=== PATIENT | female | born 1990 | race African-American/Black ===

== ENCOUNTER 2016-07-11 15:33 | Emergency (ER) | payer OTHER ==
[~2016-07-11] VITALS: Ht 177.8 cm; Wt 88.0 kg
[~2016-07-11 15:33] MED LIST: BACTRIM,SEPT1 TABLET PO; ENDOCET 5-3251 EACH PO; FLUCONAZOLE150 MG; LISINOPRIL10 MG PO; MIRENA52 MG; MOTRIN800 MG PO; PRENATAL1 EACH PO; TRAMADOL HCL50 MG
[2016-07-11] MEDS ORDERED: BENADRYL50 MG PO (17:20)
[2016-07-11 17:38] VITALS: BP 137/101
== END 2016-07-11 17:40 | disposition home or self-care (01) ==
LOC: EME 15:33
DX: T49.4X5A Adverse effect of keratolytics, keratoplastics, and other hair treatment drugs and preparations, initial encounter (principal); L23.4 Allergic contact dermatitis due to dyes; F17.200 Nicotine dependence, unspecified, uncomplicated
CPT/HCPCS: 99281; 99284

== ENCOUNTER → 2017-06-04 | Outpatient (CLI) | payer OTHER ==
[~2017-06-04] MED LIST changes: +BENADRYL50 MG PO
== END | disposition home or self-care (01) ==
LOC: CDC 15:51
DX: O10.019 Pre-existing essential hypertension complicating pregnancy, unspecified trimester (principal); O09.90 Supervision of high risk pregnancy, unspecified, unspecified trimester
CPT/HCPCS: 93000

== ENCOUNTER 2017-07-02 19:29 | Outpatient (CLI) | payer OTHER ==
[~2017-07-02] VITALS: Ht 177.8 cm; Wt 92.1 kg
[2017-07-02 19:52] VITALS: BP 117/75
[2017-07-02 20:15] VITALS: BP 116/72
[2017-07-02] MEDS ORDERED: PROCARDIA XL30 MG PO (20:15)
[2017-07-02] MEDS ORDERED: FLINTSTONES CO1 EAC1 PO (20:15)
[2017-07-02 20:19] LABS: BASOPHIL (%) 0.1 % (0-1); EOSINOPHIL (%) 1.1 % (0-5); EOSINOPHIL COUNT 0.1 K/uL (0-0.3); HEMATOCRIT 31.9 % (36.0-46.0); HEMOGLOBIN 10.6 G/DL (11.9-15.5); IMMATURE GRANULOCYTE (%) 0.6 % (0.0-0.7); LYMPHOCYTE (%) 17.7 % (15-42); LYMPHOCYTE COUNT 1.7 K/uL (1.0-2.8); MCHC 33.2 G/DL (30.0-36.0); MCV 90.4 FL (83-99); MONOCYTE (%) 6.8 % (3-12); MONOCYTE COUNT 0.7 K/uL (0-0.8); NEUTROPHIL (%) 73.7 % (45-76); NEUTROPHIL COUNT 7.1 K/uL (1.8-6.4); PLATELET COUNT 196 K/uL (156-360); RBC DIS.WIDTH-CV 12.5 % (11.8-14.6); RBC DIS.WIDTH-SD 40.6 % (39-53); RED BLOOD COUNT 3.53 M/uL (3.80-5.20); WHITE BLOOD COUNT 9.6 K/uL (4.1-10.2)
[2017-07-02 20:44] VITALS: BP 125/70
[2017-07-02 20:49] LABS: APPEARANCE CLEAR ((CLEAR)); BILIRUBIN NEGATIVE; BLOOD NEGATIVE; COLOR COLORLESS ((YELLOW)); GLUCOSE (STRIP) NEGATIVE; KETONES NEGATIVE; LEUKOCYTES NEGATIVE; NITRITE NEGATIVE; PROTEIN (STRIP) NEGATIVE; SPECIFIC GRAVITY 1.002 (1.000-1.030); UCUL ADDED? NO; UROBILINOGEN 0.2 MG/DL (0.2-1.0)
[2017-07-02 21:01] LABS: ALBUMIN 3.2 G/DL (3.2-4.8); CHLORIDE 111 MEQ/L (99-109); POTASSIUM 3.4 MEQ/L (3.7-5.4); SODIUM 140 MEQ/L (136-147); TOTAL BILIRUBIN 0.2 MG/DL (0.0-1.0)
[2017-07-02 21:06] LABS: ALKALINE PHOSPHATASE 38 IU/L (3-129); ALT (GPT) 6 IU/L (3-49); AST (GOT) 11 IU/L (2-34); CREATININE 0.6 MG/DL (0.6-1.3); GFR ESTIMATE (CALCULATED) > 59 mL/min/; GLUCOSE 97 mg/dL (70-99); LACTATE DEHYDROGENASE 115 IU/L (20-246); TOTAL PROTEIN 5.4 G/DL (6.4-8.3); UREA NITROGEN (BUN) 10 mg/dL (9-23)
[2017-07-02 21:06] LABS: AMPHETAMINE NEGATIVE (500 ng/mL); BARBITURATES NEGATIVE (200 ng/mL); BENZODIAZEPINES NEGATIVE (150 ng/mL); BUPRENORPHINE NEGATIVE (10 ng/mL); COCAINE NEGATIVE (150 ng/mL); METHADONE NEGATIVE (200 ng/mL); METHAMPHETAMINE NEGATIVE (500 ng/mL); OPIATES (MORPHINE) PRESUMPTIVE POSITIVE (100 ng/mL); OXYCODONE NEGATIVE (100 ng/mL); PHENCYCLIDINE NEGATIVE (25 ng/mL); PROPOXYPHENE NEGATIVE (300 ng/mL); THC CANNABINOIDS NEGATIVE (50 ng/mL); TRICYCLIC ANTIDEPRESSANTS NEGATIVE (300 ng/mL)
[2017-07-02 21:17] LABS: UR CREATININE CONCENTRATION 18.3 MG/DL
[2017-07-02 22:40] LABS: BENZODIAZEPINES, URINE SCREEN Negative (200 ng/mL)
== END 2017-07-02 21:55 | disposition home or self-care (01) ==
LOC: LDRP-OP 19:29 → 2WEST 19:30
PROVIDERS: Advanced Practice Midwife
DX: O10.912 Unspecified pre-existing hypertension complicating pregnancy, second trimester (principal); Z79.82 Long term (current) use of aspirin; Z87.891 Personal history of nicotine dependence; O99.342 Other mental disorders complicating pregnancy, second trimester; F32.9 Major depressive disorder, single episode, unspecified; O99.282 Endocrine, nutritional and metabolic diseases complicating pregnancy, second trimester; E87.6 Hypokalemia; Z3A.23 23 weeks gestation of pregnancy
CPT/HCPCS: 59025; 80053; 80306 90; 81003; 82570; 83615; 84156; 84550; 84999; 85025; G0378

== ENCOUNTER 2017-09-14 19:31 | Outpatient (CLI) | payer OTHER ==
[~2017-09-14 19:31] MED LIST changes: +FLINTSTONES CO1 EAC1 PO; +PROCARDIA XL30 MG PO
[2017-09-14 19:41] VITALS: BP 134/89
[2017-09-14 20:10] VITALS: BP 130/81
[2017-09-14 20:16] LABS: BASOPHIL (%) 0.3 % (0-1); EOSINOPHIL (%) 0.8 % (0-5); EOSINOPHIL COUNT 0.1 K/uL (0-0.3); HEMATOCRIT 32.6 % (36.0-46.0); HEMOGLOBIN 10.9 G/DL (11.9-15.5); IMMATURE GRANULOCYTE (%) 0.9 % (0.0-0.7); LYMPHOCYTE (%) 17.4 % (15-42); LYMPHOCYTE COUNT 1.8 K/uL (1.0-2.8); MCH 29.9 PG (29.0-34.0); MCHC 33.4 G/DL (30.0-36.0); MCV 89.3 FL (83-99); MONOCYTE (%) 7.2 % (3-12); MONOCYTE COUNT 0.7 K/uL (0-0.8); NEUTROPHIL (%) 73.4 % (45-76); NEUTROPHIL COUNT 7.4 K/uL (1.8-6.4); PLATELET COUNT 189 K/uL (156-360); RBC DIS.WIDTH-CV 12.2 % (11.8-14.6); RBC DIS.WIDTH-SD 39.5 % (39-53); RED BLOOD COUNT 3.65 M/uL (3.80-5.20); WHITE BLOOD COUNT 10.1 K/uL (4.1-10.2)
[2017-09-14 20:42] VITALS: BP 133/84
[2017-09-14 20:48] LABS: APPEARANCE CLEAR ((CLEAR)); BILIRUBIN NEGATIVE; BLOOD NEGATIVE; COLOR STRAW ((YELLOW)); GLUCOSE (STRIP) NEGATIVE; KETONES NEGATIVE; LEUKOCYTES NEGATIVE; NITRITE NEGATIVE; PROTEIN (STRIP) NEGATIVE; SPECIFIC GRAVITY 1.004 (1.000-1.030); UCUL ADDED? NO; UROBILINOGEN 0.2 MG/DL (0.2-1.0)
[2017-09-14 21:05] LABS: ALBUMIN 3.3 G/DL (3.2-4.8); ALKALINE PHOSPHATASE 67 IU/L (3-129); ALT (GPT) 6 IU/L (3-49); AST (GOT) 16 IU/L (2-34); CHLORIDE 109 MEQ/L (99-109); CREATININE 0.6 MG/DL (0.6-1.3); GFR ESTIMATE (CALCULATED) > 59 mL/min/; GLUCOSE 81 mg/dL (70-99); LACTATE DEHYDROGENASE 142 IU/L (20-246); POTASSIUM 3.2 MEQ/L (3.7-5.4); SODIUM 138 MEQ/L (136-147); TOTAL BILIRUBIN 0.3 MG/DL (0.0-1.0); TOTAL PROTEIN 5.7 G/DL (6.4-8.3); UREA NITROGEN (BUN) 6 mg/dL (9-23)
[2017-09-14 21:49] VITALS: BP 132/81
[2017-09-14] MEDS ORDERED: ASPIR 8181 M1 PO (22:30)
== END 2017-09-14 22:40 | disposition home or self-care (01) ==
LOC: LDRP-OP 19:31 → 2WEST 19:32 → LDRP-OP 11-25 22:39
PROVIDERS: Advanced Practice Midwife
DX: O10.913 Unspecified pre-existing hypertension complicating pregnancy, third trimester (principal); O99.343 Other mental disorders complicating pregnancy, third trimester; F32.9 Major depressive disorder, single episode, unspecified; Z3A.34 34 weeks gestation of pregnancy; Z87.891 Personal history of nicotine dependence
CPT/HCPCS: 59025; 76818; 80053; 81003; 82570; 83615; 84156; 84550; 85025; 85384; 87086; G0378

== ENCOUNTER 2017-09-19 11:37 | Outpatient (CLI) | payer OTHER ==
[2017-09-19] VITALS (10 sets, daily range): BP systolic 118–141; BP diastolic 65–93
[~2017-09-19] VITALS: Ht 177.8 cm; Wt 98.4 kg
[~2017-09-19 11:37] MED LIST changes: +ASPIR 8181 M1 PO
[2017-09-19] MEDS ORDERED: TYLENOL EXTRA500 MG PO (12:00)
[2017-09-19] MEDS ORDERED: REGLAN10 MG PO (12:00)
[2017-09-19 12:34] LABS: BASOPHIL (%) 0.1 % (0-1); EOSINOPHIL (%) 0.8 % (0-5); EOSINOPHIL COUNT 0.1 K/uL (0-0.3); HEMATOCRIT 33.7 % (36.0-46.0); HEMOGLOBIN 11.4 G/DL (11.9-15.5); IMMATURE GRANULOCYTE (%) 0.6 % (0.0-0.7); LYMPHOCYTE (%) 17.2 % (15-42); LYMPHOCYTE COUNT 1.4 K/uL (1.0-2.8); MCH 30.4 PG (29.0-34.0); MCHC 33.8 G/DL (30.0-36.0); MCV 89.9 FL (83-99); MONOCYTE (%) 4.8 % (3-12); MONOCYTE COUNT 0.4 K/uL (0-0.8); NEUTROPHIL (%) 76.5 % (45-76); NEUTROPHIL COUNT 6.1 K/uL (1.8-6.4); PLATELET COUNT 169 K/uL (156-360); RBC DIS.WIDTH-CV 12.3 % (11.8-14.6); RBC DIS.WIDTH-SD 40.3 % (39-53); RED BLOOD COUNT 3.75 M/uL (3.80-5.20)
[2017-09-19 13:23] LABS: ALBUMIN 3.1 G/DL (3.2-4.8); ALKALINE PHOSPHATASE 79 IU/L (3-129); ALT (GPT) 5 IU/L (3-49); AST (GOT) 11 IU/L (2-34); CHLORIDE 109 MEQ/L (99-109); CREATININE 0.6 MG/DL (0.6-1.3); GFR ESTIMATE (CALCULATED) > 59 mL/min/; GLUCOSE 159 mg/dL (70-99); LACTATE DEHYDROGENASE 118 IU/L (20-246); POTASSIUM 3.2 MEQ/L (3.7-5.4); SODIUM 139 MEQ/L (136-147); TOTAL BILIRUBIN 0.3 MG/DL (0.0-1.0); TOTAL PROTEIN 5.6 G/DL (6.4-8.3); UREA NITROGEN (BUN) 7 mg/dL (9-23); URIC ACID 3.4 mg/dL (3.1-9.2)
[2017-09-19 13:23] LABS: UR CREATININE CONCENTRATION 36.4 MG/DL
[2017-09-19 13:56] LABS: AMPHETAMINE NEGATIVE (500 ng/mL); BARBITURATES NEGATIVE (200 ng/mL); BENZODIAZEPINES NEGATIVE (150 ng/mL); BUPRENORPHINE NEGATIVE (10 ng/mL); COCAINE NEGATIVE (150 ng/mL); METHADONE NEGATIVE (200 ng/mL); METHAMPHETAMINE NEGATIVE (500 ng/mL); OPIATES (MORPHINE) NEGATIVE (100 ng/mL); OXYCODONE NEGATIVE (100 ng/mL); PHENCYCLIDINE NEGATIVE (25 ng/mL); PROPOXYPHENE NEGATIVE (300 ng/mL); THC CANNABINOIDS NEGATIVE (50 ng/mL); TRICYCLIC ANTIDEPRESSANTS NEGATIVE (300 ng/mL)
[2017-09-19 19:46] LABS: UR CREATININE CONCENTRATION 26.1 MG/DL
[2017-09-20 03:13] VITALS: BP 121/76
[2017-09-20 08:44] VITALS: BP 128/78
[2017-09-20 10:10] VITALS: BP 126/80
[2017-09-20 12:00] VITALS: BP 121/71
[2017-09-20 14:37] VITALS: BP 122/71
[2017-09-20 18:40] VITALS: BP 131/71
[2017-09-20 20:38] LABS: 24 HR VOLUME 6000 MLS
== END 2017-09-20 21:15 | disposition home or self-care (01) ==
LOC: LDRP-OP 11:37 → 2WEST 11:38 → LDRP-OP 11-25 23:05
PROVIDERS: Advanced Practice Midwife
DX: O26.893 Other specified pregnancy related conditions, third trimester (principal); O10.013 Pre-existing essential hypertension complicating pregnancy, third trimester; O41.03X0 Oligohydramnios, third trimester, not applicable or unspecified; Z3A.34 34 weeks gestation of pregnancy
CPT/HCPCS: 59025; 76818; 80053; 81050; 82570; 83615; 84156; 84550; 85025; G0378; J0702; J7120

== ENCOUNTER 2017-10-04 14:09 | Inpatient (IN) | payer OTHER ==
[~2017-10-04] VITALS: Ht 177.8 cm; Wt 98.4 kg
[~2017-10-04 14:09] MED LIST changes: +REGLAN10 MG PO; +TYLENOL EXTRA500 MG PO
[2017-10-04 14:40] VITALS: BP 133/90
[2017-10-04 15:49] VITALS: BP 134/90
[2017-10-04 17:09] VITALS: BP 130/98
[2017-10-04 19:31] VITALS: BP 133/90
[2017-10-04 22:34] VITALS: BP 135/97
[2017-10-05] VITALS (19 sets, daily range): BP systolic 111–143; BP diastolic 50–98
[2017-10-05 07:05] LABS: BASOPHIL (%) 0.3 % (0-1); EOSINOPHIL (%) 0.6 % (0-5); EOSINOPHIL COUNT 0.1 K/uL (0-0.3); HEMATOCRIT 35.4 % (36.0-46.0); HEMOGLOBIN 11.7 G/DL (11.9-15.5); IMMATURE GRANULOCYTE (%) 1.3 % (0.0-0.7); LYMPHOCYTE (%) 21.2 % (15-42); MCH 30.4 PG (29.0-34.0); MCHC 33.1 G/DL (30.0-36.0); MCV 91.9 FL (83-99); MONOCYTE (%) 7.4 % (3-12); MONOCYTE COUNT 0.7 K/uL (0-0.8); NEUTROPHIL (%) 69.2 % (45-76); NEUTROPHIL COUNT 6.5 K/uL (1.8-6.4); NRBC (%) 0.2 /100 WBC (0-0); PLATELET COUNT 154 K/uL (156-360); RBC DIS.WIDTH-CV 12.8 % (11.8-14.6); RBC DIS.WIDTH-SD 41.9 % (39-53); RED BLOOD COUNT 3.85 M/uL (3.80-5.20); WHITE BLOOD COUNT 9.4 K/uL (4.1-10.2)
[2017-10-05 08:34] LABS: AMPHETAMINE NEGATIVE (500 ng/mL); BARBITURATES NEGATIVE (200 ng/mL); BENZODIAZEPINES NEGATIVE (150 ng/mL); BUPRENORPHINE NEGATIVE (10 ng/mL); COCAINE NEGATIVE (150 ng/mL); METHADONE NEGATIVE (200 ng/mL); METHAMPHETAMINE NEGATIVE (500 ng/mL); OPIATES (MORPHINE) NEGATIVE (100 ng/mL); OXYCODONE NEGATIVE (100 ng/mL); PHENCYCLIDINE NEGATIVE (25 ng/mL); PROPOXYPHENE NEGATIVE (300 ng/mL); THC CANNABINOIDS NEGATIVE (50 ng/mL); TRICYCLIC ANTIDEPRESSANTS NEGATIVE (300 ng/mL)
[2017-10-05 09:22] LABS: ALBUMIN 3.1 G/DL (3.2-4.8); ALKALINE PHOSPHATASE 92 IU/L (3-129); ALT (GPT) 4 IU/L (3-49); AST (GOT) 10 IU/L (2-34); CHLORIDE 109 MEQ/L (99-109); CREATININE 0.7 MG/DL (0.6-1.3); GFR ESTIMATE (CALCULATED) > 59 mL/min/; GLUCOSE 87 mg/dL (70-99); LACTATE DEHYDROGENASE 160 IU/L (20-246); SODIUM 140 MEQ/L (136-147); TOTAL BILIRUBIN 0.3 MG/DL (0.0-1.0); TOTAL PROTEIN 5.4 G/DL (6.4-8.3); UREA NITROGEN (BUN) 8 mg/dL (9-23)
[2017-10-05 13:28] LABS: APPEARANCE CLEAR ((CLEAR)); BILIRUBIN NEGATIVE; BLOOD NEGATIVE; COLOR YELLOW ((YELLOW)); GLUCOSE (STRIP) NEGATIVE; KETONES NEGATIVE; LEUKOCYTES NEGATIVE; NITRITE NEGATIVE; PROTEIN (STRIP) NEGATIVE; SPECIFIC GRAVITY 1.012 (1.000-1.030); UCUL ADDED? NO; UROBILINOGEN 0.2 MG/DL (0.2-1.0)
[2017-10-06] VITALS (35 sets, daily range): BP systolic 104–164; BP diastolic 60–107
[2017-10-07] VITALS (12 sets, daily range): BP systolic 127–182; BP diastolic 67–98
[2017-10-08 03:20] VITALS: BP 111/71
[2017-10-08 06:37] LABS: BASOPHIL (%) 0.3 % (0-1); EOSINOPHIL (%) 2.1 % (0-5); EOSINOPHIL COUNT 0.2 K/uL (0-0.3); HEMATOCRIT 36.7 % (36.0-46.0); IMMATURE GRANULOCYTE (%) 1.1 % (0.0-0.7); LYMPHOCYTE (%) 21.7 % (15-42); LYMPHOCYTE COUNT 2.2 K/uL (1.0-2.8); MCH 29.6 PG (29.0-34.0); MCHC 32.7 G/DL (30.0-36.0); MCV 90.4 FL (83-99); MONOCYTE (%) 7.1 % (3-12); MONOCYTE COUNT 0.7 K/uL (0-0.8); NEUTROPHIL (%) 67.7 % (45-76); NEUTROPHIL COUNT 6.8 K/uL (1.8-6.4); PLATELET COUNT 147 K/uL (156-360); RBC DIS.WIDTH-CV 12.6 % (11.8-14.6); RBC DIS.WIDTH-SD 41.2 % (39-53); RED BLOOD COUNT 4.06 M/uL (3.80-5.20); WHITE BLOOD COUNT 10.1 K/uL (4.1-10.2)
[2017-10-08 06:55] VITALS: BP 118/67
[2017-10-08 12:20] VITALS: BP 140/87
[2017-10-08 14:43] VITALS: BP 122/78
[2017-10-08 19:30] VITALS: BP 133/87
[2017-10-08 22:29] VITALS: BP 126/80
[2017-10-09 03:00] VITALS: BP 134/93
[2017-10-09 06:59] VITALS: BP 134/92
[2017-10-09] MEDS ORDERED: IBUPROFEN800 MG PO (09:23)
[2017-10-09 10:43] VITALS: BP 122/84
== END 2017-10-09 14:38 | disposition home or self-care (01) | DRG 774 ==
LOC: LDRP-OP 14:09 → 2WEST 14:10 → LDRP-OP 11-25 06:38
PROVIDERS: Advanced Practice Midwife; Obstetrics & Gynecology Obstetrics
PROC: 3E0R3BZ Introduction of Anesthetic Agent into Spinal Canal, Percutaneous Approach (ICD-10-PCS; principal; 2017-10-06)
PROC: 3E033VJ Introduction of Other Hormone into Peripheral Vein, Percutaneous Approach (ICD-10-PCS; principal; 2017-10-06)
PROC: 3E0P7VZ Introduction of Hormone into Female Reproductive, Via Natural or Artificial Opening (ICD-10-PCS; principal; 2017-10-06)
PROC: 00HU33Z Insertion of Infusion Device into Spinal Canal, Percutaneous Approach (ICD-10-PCS; principal; 2017-10-06)
PROC: 0HQ9XZZ Repair Perineum Skin, External Approach (ICD-10-PCS; 2017-10-07)
PROC: 10E0XZZ Delivery of Products of Conception, External Approach (ICD-10-PCS; 2017-10-07)
DX: O10.02 Pre-existing essential hypertension complicating childbirth (principal); O41.03X0 Oligohydramnios, third trimester, not applicable or unspecified; O70.0 First degree perineal laceration during delivery; Z3A.37 37 weeks gestation of pregnancy; Z37.0 Single live birth
CPT/HCPCS: 80053; 81003; 82570; 83615; 84156; 84550; 85025; C1755; G0378; J7120

== ENCOUNTER 2017-10-12 12:22 | Emergency (ER) | payer OTHER ==
[~2017-10-12] VITALS: Ht 177.8 cm; Wt 93.3 kg
[~2017-10-12 12:22] MED LIST changes: +IBUPROFEN800 MG PO
[2017-10-12 13:31] LABS: HEMATOCRIT 41.5 % (36.0-46.0); MCH 30.8 PG (29.0-34.0); MCHC 33.7 G/DL (30.0-36.0); MCV 91.2 FL (83-99); PLATELET COUNT 197 K/uL (156-360); RBC DIS.WIDTH-CV 12.3 % (11.8-14.6); RBC DIS.WIDTH-SD 40.7 % (39-53); RED BLOOD COUNT 4.55 M/uL (3.80-5.20); WHITE BLOOD COUNT 7.2 K/uL (4.1-10.2)
[2017-10-12 13:38] LABS: ALBUMIN 3.6 g/dL (3.2-4.8); CHLORIDE 107 mEq/L (99-109); POTASSIUM 3.7 mEq/L (3.7-5.4); SODIUM 142 mEq/L (136-147)
[2017-10-12 13:41] LABS: GLUCOSE 112 mg/dL (70-99); TOTAL PROTEIN 6.6 g/dL (6.4-8.3)
[2017-10-12 13:42] LABS: TOTAL BILIRUBIN 0.4 mg/dL (0.0-1.0)
[2017-10-12 13:44] LABS: ALKALINE PHOSPHATASE 106 IU/L (3-129); CREATININE 0.8 mg/dL (0.6-1.3); GFR ESTIMATE (CALCULATED) > 59 mL/min/
[2017-10-12 13:45] LABS: UREA NITROGEN (BUN) 10 mg/dL (9-23)
[2017-10-12 13:45] LABS: APPEARANCE CLEAR ((CLEAR)); BILIRUBIN NEGATIVE; BLOOD MODERATE; COLOR YELLOW ((YELLOW)); GLUCOSE (STRIP) NEGATIVE; KETONES NEGATIVE; LEUKOCYTES NEGATIVE; NITRITE NEGATIVE; PROTEIN (STRIP) NEGATIVE; SPECIFIC GRAVITY 1.015 (1.000-1.030); UROBILINOGEN 0.2 MG/DL (0.2-1.0)
[2017-10-12 13:46] LABS: AST (GOT) 20 IU/L (2-34)
[2017-10-12 13:47] LABS: ALT (GPT) 19 IU/L (3-49)
[2017-10-12 13:52] LABS: BACTERIA NONE SEEN /HPF; EPITHELIAL CELLS NONE SEEN /HPF; MUCUS TRACE /LPF; RED BLOOD CELLS 0-5 /HPF (0-5); UCUL ADDED? NO; WHITE BLOOD CELLS 0-5 /HPF (0-5)
[2017-10-12] MEDS ORDERED: PERCOCET 5/31 TABLET PO (15:09)
[2017-10-12 15:24] VITALS: BP 152/114
== END 2017-10-12 15:26 | disposition home or self-care (01) ==
LOC: EME 12:22
PROVIDERS: Physician Assistant
DX: N63.32 Unspecified lump in axillary tail of the left breast (principal); N63.31 Unspecified lump in axillary tail of the right breast; Z88.8 Allergy status to other drugs, medicaments and biological substances
CPT/HCPCS: 76881; 80053; 81003; 85027; 99281; 99283